=== PATIENT | female | born 1995 | race Caucasian/White ===

== ENCOUNTER 2024-10-03 00:57 | Emergency (ER) | payer MEDICAID, SELFPAY ==
[2024-10-03 00:59] VITALS: BMI 39.1
[2024-10-03 01:33] VITALS: BP 129/82; PULSE 68; RESP 18; TEMP 36.7; O2SAT 98
[2024-10-03] MEDS: MG HYD/AL HYD/SIME (Maalox Reg) SUSP 30 ML UDC PO (02:10)
[2024-10-03] MEDS: LIDOCAINE VISCOUS 2% 15 ML UDC PO (02:10)
[2024-10-03] MEDS: ONDANSETRON ODT 4 MG TABRAP 8 MG PO (02:10)
[2024-10-03] MEDS: FAMOTIDINE 20 MG TABLET 40 MG PO (02:10)
[2024-10-03 02:26] VITALS: RESP 12
--- NOTE | 2024-10-03 04:10 | EDNOTE_ITS ---
ED Abdominal Pain RME/HPI General Chief Complaint: Abdominal Pain Stated complaint: ABD PAIN Time seen by provider: 10/03/24 01:58 Arrival date/time: 10/03/24 00:57 29F with history of cholecystectomy, gastric bypass surgery, and GERD presents to ED with intermittent N/V and epigastric pain. Patient states today there was a bit of blood in her mucus. Patient denies coughing up blood. Patient just wants some meds as she doesn't have much pain now as the symptoms are undulating. Limitations: no limitations Related Data Previous Rx's ?Medication ?Instructions ?Recorded ondansetron 4 mg disintegrating 4 mg PO Q8H PRN nausea and 10/03/24 tablet vomiting #14 tabs Allergies Allergy/AdvReac Type Severity Reaction Status Date / Time No Known Allergies Allergy Verified 10/03/24 00:58 Review of Systems Review of Systems Systems Reviewed: All systems reviewed, normal except as documented Constitutional Constitutional: Reports system reviewed and no additional complaints, except as documented, Denies fever(s) and Denies headache(s) ENT Ears, Nose, Mouth, and Throat: Denies disequilibrium and Denies headache(s) Cardiovascular Cardiovascular: Reports system reviewed and no additional complaints, except as documented, Denies chest pain and Denies dyspnea Respiratory Respiratory: Reports system reviewed and no additional complaints, except as documented, Denies cough and Denies dyspnea Gastrointestinal Gastrointestinal: Reports system reviewed and no additional complaints, except as documented, Reports as per HPI, Reports abdominal pain, Reports nausea and Reports vomiting Neurologic Neurologic: Reports system reviewed and no additional complaints, except as documented, Denies confusion, Denies disequilibrium and Denies headache(s) Psychiatric Psychiatric: Denies confusion Past Medical History Social History SMOKING STATUS: Never smoker ED Exam General Limitations: Present no limitations General appearance: Present alert and in no apparent distress Head Head exam: Present atraumatic Eye Eye exam: Present normal appearance, PERRL and EOMI ENT ENT exam: Present normal exam, normal oropharynx and mucous membranes moist Neck Neck exam: Present normal inspection, full ROM and trachea midline Chest Chest inspection: Present normal inspection and symmetric chest wall rise Respiratory Respiratory exam: Present normal lung sounds bilaterally Cardiovascular Cardiovascular exam: Present regular rate, normal rhythm and normal heart sounds Abdominal Exam Abdominal exam: Present soft and normal bowel sounds Extremities Exam Extremities exam: Present normal inspection and full ROM Back Exam Back exam: Present normal inspection and full ROM Neurological Exam Neurological exam: Present alert, oriented X3 and CN II-XII intact Psychiatric Psychiatric exam: Present normal affect and normal mood Skin Skin exam: Present warm, dry, intact and normal color Course Quality Measures none Orders Category Date Time Status Famotidine [Pepcid] Med 10/03/24 01:58 Discontinued 40 mg PO X1 ONE Lidocaine 2% Viscous [Xylocaine 2% Viscous] Med 10/03/24 01:58 Discontinued 15 ml PO X1 ONE Ondansetron Odt [Zofran Odt] Med 10/03/24 01:58 Discontinued 8 mg PO X1 ONE mg Hyd/Al Hyd/Michael Susp [Maalox Susp] Med 10/03/24 01:58 Discontinued 30 ml PO X1 ONE Vital Signs Vital signs: Vital Signs Temperature 98.1 F 10/03/24 01:33 Pulse Rate 68 10/03/24 01:33 Respiratory Rate 18 10/03/24 01:33 Blood Pressure 129/82 10/03/24 01:33 Pulse Oximetry (%) 98 10/03/24 01:33 Oxygen Delivery Method Room Air 10/03/24 01:33 O2 at 98% on RA and WNLs Abdominal Pain MDM MDM Narrative MDM Narrative:: 29F with history of cholecystectomy, gastric bypass surgery, and GERD presents to ED with intermittent N/V and epigastric pain. Patient states today there was a bit of blood in her mucus. Patient denies coughing up blood. Patient just wants some meds as she doesn't have much pain now as the symptoms are undulating. Physical exam reveals well-appearing female. Normal WOB. Patient is afebrile, calm, and alert. 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 Patient declines observation period. Patient data External records reviewed:: None Clinical information provided by:: patient Social determinants that could affect healthcare access:: none Patient has the following chronic illnesses:: cholecystectomy, gastric bypass surgery, and GERD How is presenting disease/condition affected by chronic disease/condition?: exacerbated by Evaluation data The following diagnostics were reviewed and interpreted by me:: other (specify) (none) Lab and/or radiology exams considered but not ordered:: not ordered Interpretation Summary: n/a Medications / Prescriptions Medications or Prescriptions considered but not ordered:: ordered Medication administrations:: Medication Administration History Discontinued Medications Al Hydrox/Mg Hydrox/Simethicone (Mg Hyd/Al Hyd/Michael (Maalox Reg) Susp 30 Ml Udc) 30 ml PO X1 ONE Stop: 10/03/24 01:59 Last Admin: 10/03/24 02:10 Dose: 30 ml Documented By: CVL Famotidine (Famotidine 20 Mg Tablet) 40 mg PO X1 ONE Stop: 10/03/24 01:59 Last Admin: 10/03/24 02:10 Dose: 40 mg Documented By: CVL Lidocaine HCl (Lidocaine Viscous 2% 15 Ml Udc) 15 ml PO X1 ONE Stop: 10/03/24 01:59 Last Admin: 10/03/24 02:10 Dose: 15 ml Documented By: CVL Ondansetron HCl (Ondansetron Odt 4 Mg Tabrap) 8 mg PO X1 ONE; Protocol Stop: 10/03/24 01:59 Last Admin: 10/03/24 02:10 Dose: 8 mg Documented By: CVL above Consultations Consultation(s) initiated? (list below): No Diagnosis Differential diagnosis abdominal pain: abdominal pain, acute appendicitis, calculus of kidney, constipation, diverticulitis, endometriosis, gastroenteritis, pancreatitis, small bowel obstruction and other (GERD) Most likely diagnosis given after review of the tests above:: GERD Admission Indicated Admission indicated?: not indicated Admission Request Was there a request for admission?: No Disposition Plan Disposition Plan: Discharge Discharge Attestation Discharge Attestation: The patient and all family members were given an opportunity to ask questions and understood the discharge instructions. Discharge instructions specifically effects, indications for sooner follow up or return to the emergency department, and the expected course of current diagnosis. Patient condition: Stable Discharge Plan Plan Patient Disposition: HOME (Self Care) Discharge Disposition comment: Stable Prescriptions/Referrals Prescriptions/Med Rec: New ondansetron 4 mg tablet,disintegrating 4 mg PO Q8H PRN (Reason: nausea and vomiting) Qty: 14 0RF Problem List Clinical Impression: GERD (gastroesophageal reflux disease) Patient/Caregiver Discharge Instructions Education Materials: ED GERD (Adult) Additional Instructions: Please follow-up with PCP within 24-48 hours and return immediately if symptoms worsen. Can ask PCP about H.pylori testing if you haven't been tested yet. Print Language: [place] Helen[place] Stand Alone Forms: Patient Portal Info Letter MARIELA/YESICA Supervising Physician MARIELA/YESICA Supervising Physician: Dr. Varghese
== END 2024-10-03 02:26 | disposition home or self-care (01) ==
LOC: SERX 06:26
PROVIDERS: Emergency Provider Emergency Medicine; PCP Internal Medicine
DX: K21.9 Gastro-esophageal reflux disease without esophagitis (principal)
CPT/HCPCS: 99283; J3490; Q0162; A9270

== ENCOUNTER 2024-10-25 18:42 | Emergency (ER) | payer MEDICAID, SELFPAY ==
[2024-10-25 19:25] VITALS: BP 127/85; PULSE 73; RESP 18; TEMP 36.8; O2SAT 98
--- NOTE | 2024-10-25 19:37 | XR_ITS ---
Examination: PA chest single view Technique: Upright PA chest single view Date and time: October 25, 2024 1941 hrs. Indications: Coughing beginning 2 days ago. Findings: Suspicious for early left basilar pneumonia Normal heart size Right lung clear Impression: Suspicious for early left basilar pneumonia
[2024-10-25 20:08] LABS: Strep A Rapid Negative (Negative)
[2024-10-25 20:39] LABS: HCG Qualitative,Urine Negative
--- NOTE | 2024-10-25 21:17 | PD.EDURI ---
Upper Respiratory Inf. RME/HPI General Chief Complaint: Flu Like Symptoms Stated Complaint: COUGH, RUNNY NOSE, SORE THROAT Time Seen by Provider: 10/25/24 19:13 Arrival date/time: 10/25/24 18:42 This is a case of 29-year-old female with no medical history came into the emergency room due to productive cough nasal congestion subjective fever and sore throat for 1 day patient is exposed to with COVID patient persistence of the symptoms this patient decided to sought consult here in the emergency room denies any chest pain shortness of breath Limitations: no limitations Related Data Previous Rx's ?Medication ?Instructions ?Recorded ondansetron 4 mg disintegrating 4 mg PO Q8H PRN nausea and 10/03/24 tablet vomiting #14 tabs albuterol sulfate 90 mcg/actuation 2 puff inhalation Q6H PRN 10/25/24 aerosol inhaler (Ventolin HFA) shortness of breath or wheezing #8.5 grams amoxicillin 875 mg-potassium 1 tab PO BID #20 tabs 10/25/24 clavulanate 125 mg tablet lidocaine HCl 2 % mucosal solution 10 ml PO Q4HR PRN sore throat #100 10/25/24 (Lidocaine Viscous) mL promethazine-DM 6.25 mg-15 mg/5 mL 5 ml PO Q6H PRN cough #118 mL 10/25/24 oral syrup Allergies Allergy/AdvReac Type Severity Reaction Status Date / Time No Known Allergies Allergy Verified 10/25/24 18:44 Review of Systems Review of Systems Systems Reviewed: All systems reviewed, normal except as documented Constitutional Constitutional: Reports system reviewed and no additional complaints, except as documented and Reports as per HPI Cardiovascular Cardiovascular: Reports system reviewed and no additional complaints, except as documented, Reports as per HPI, Denies chest pain and Denies dyspnea Respiratory Respiratory: Reports system reviewed and no additional complaints, except as documented, Reports as per HPI, Reports cough and Denies dyspnea Gastrointestinal Gastrointestinal: Reports system reviewed and no additional complaints, except as documented and Reports as per HPI Genitourinary Genitourinary: Reports system reviewed and no additional complaints, except as documented and Reports as per HPI Musculoskeletal Musculoskeletal: Reports system reviewed and no additional complaints, except as documented and Reports as per HPI Neurologic Neurologic: Reports system reviewed and no additional complaints, except as documented and Reports as per HPI Past Medical History Social History SMOKING STATUS: Never smoker ED Exam General Limitations: Present no limitations General appearance: Present alert, in no apparent distress and other (Patient is awake alert oriented not in distress nontoxic looking well-hydrated no well-nourished) Head Head exam: Present atraumatic, normocephalic and normal inspection Eye Eye exam: Present normal appearance, PERRL and EOMI ENT ENT exam: Present normal exam, normal oropharynx, mucous membranes moist and other (Noted pharynx versus red tonsil is not swollen not red no exudate no peritonsillar abscess ear and nose were normal) Neck Neck exam: Present normal inspection, full ROM, trachea midline and other (24 meningeal sign); Absent tenderness, meningismus or lymphadenopathy Chest Chest inspection: Present normal inspection and symmetric chest wall rise; Absent tenderness Respiratory Respiratory exam: Present normal lung sounds bilaterally and other (Rhonchi right lower lung field no crackles no rales no retraction no wheezing no stridor); Absent respiratory distress, wheezes, stridor, accessory muscle use or prolonged expiratory phase Cardiovascular Cardiovascular exam: Present regular rate, normal rhythm and normal heart sounds; Absent bradycardia, tachycardia, irregular rhythm, systolic murmur or diastolic murmur Abdominal Exam Abdominal exam: Present soft and normal bowel sounds Extremities Exam Extremities exam: Present normal inspection and full ROM Back Exam Back exam: Present normal inspection and full ROM Neurological Exam Neurological exam: Present alert, oriented X3, CN II-XII intact, normal gait and reflexes normal; Absent motor sensory deficit Psychiatric Psychiatric exam: Present normal affect and normal mood Skin Skin exam: Present warm, dry, intact and normal color Course Quality Measures none Orders Category Date Time Status Bedside COVID-19 Antigen Test NOW Care 10/25/24 19:37 Active Bedside Influenza A&B Antigen Test NOW Care 10/25/24 19:37 Completed XR chest 1V portable Stat Exams 10/25/24 19:37 Completed HCG Qualitative,Urine Stat Lab 10/25/24 20:13 Completed Strep A Rapid Stat Lab 10/25/24 19:47 Completed cefTRIAXone [Rocephin] 1,000 mg Med 10/25/24 21:14 Ordered Lidocaine 1% 20 ml [Xylocaine 1% 20 ML] 2.1 ml IM X1 Vital Signs Vital signs: Vital Signs Temperature 98.3 F 10/25/24 19:25 Pulse Rate 73 10/25/24 19:25 Respiratory Rate 18 10/25/24 19:25 Blood Pressure 127/85 H 10/25/24 19:25 Pulse Oximetry (%) 98 10/25/24 19:25 Oxygen Delivery Method Room Air 10/25/24 19:25 Oxygen saturation is 98% in room air Upper Respiratory Infection MDM Narrative MDM Narrative:: This is a case of 29-year-old female with no medical history came into the emergency room due to productive cough nasal congestion subjective fever and sore throat for 1 day patient is exposed to with COVID patient persistence of the symptoms this patient decided to sought consult here in the emergency room denies any chest pain shortness of breath patient is awake alert oriented not in distress nontoxic looking well-hydrated well-nourished lungs sound noted to have rhonchi on right lower lung field no wheezing no retraction no stridor not in distress heart normal rate regular rhythm no murmur HEENT exam noted to be redness on the pharynx but tonsils were normal the rest of the physical examination neurological exam is normal and unremarkable vital signs stable patient COVID and flu is negative strep is negative but the x-ray showed pneumonia patient was given ceftriaxone IM here in the emergency room for pneumonia and discharged with Augmentin patient was also given Ventolin inhaler as needed promethazine for cough and lidocaine viscous for sore throat patient will follow-up with PCP and worsening symptoms return precaution to the ER was advised Patient was discharged with comfortable condition walking with stable gait. Patient verbalized no further complains explained diagnosis and answered patient question. Patient is comfortable with the proposed management plan including the need to follow up with his/her primary care physician and any specialist if applicable Discussed patient for any urgent condition or worsening sx, He/She needed to go to emergency room immediately or call 911. Patient acknowledge the responsibility to follow up as instructed and to monitor her/his symptoms. For any persistence of the symptoms for more than 3-5 days return precaution advised. Discussed the result of the test and was given printed discharge instruction Patient data External records reviewed:: [facility] previous records Clinical information provided by:: patient Social determinants that could affect healthcare access:: none Patient has the following chronic illnesses:: None How is presenting disease/condition affected by chronic disease/condition?: no chronic disease Evaluation data The following diagnostics were reviewed and interpreted by me:: lab results and radiology exam(s) Lab and/or radiology exams considered but not ordered:: Reviewed Interpretation Summary: Reviewed Medications / Prescriptions Medications or Prescriptions considered but not ordered:: Given Medication administrations:: Medication Administration History Ceftriaxone Sodium 1,000 mg/ (Lidocaine HCl 2.1 ml) 0 mg IM X1 ONE Stop: 10/25/24 21:15 Given Consultations Consultation(s) initiated? (list below): No Diagnosis Upper Respiratory Differential Diagnosis: upper respiratory infection, otitis media, sinusitis, viral infection, bronchitis, influenza, pharyngitis and other (Pneumonia) Most likely diagnosis given after review of the tests above:: Pneumonia Admission Indicated Admission indicated?: not indicated Explain why admission is indicated or not indicated:: Not indicated Admission Request Was there a request for admission?: No Admission Attestation Admission request attestation: Not indicated Disposition Plan Disposition Plan: Discharge Discharge Attestation Discharge Attestation: The patient and all family members were given an opportunity to ask questions and understood the discharge instructions. Discharge instructions specifically effects, indications for sooner follow up or return to the emergency department, and the expected course of current diagnosis. Patient condition: Stable Discharge Plan Plan Patient Disposition: HOME (Self Care) Patient condition on transfer: Stable Prescriptions/Referrals Prescriptions/Med Rec: New amoxicillin-pot clavulanate 875-125 mg tablet 1 tab PO BID Qty: 20 0RF albuterol sulfate [Ventolin HFA] 90 mcg/actuation HFA aerosol inhaler 2 puff inhalation Q6H PRN (Reason: shortness of breath or wheezing) Qty: 8.5 0RF promethazine-DM 6.25-15 mg/5 mL syrup 5 ml PO Q6H PRN (Reason: cough) Qty: 118 0RF lidocaine HCl [Lidocaine Viscous] 2 % solution 10 ml PO Q4HR PRN (Reason: sore throat) Qty: 100 0RF No Action ondansetron 4 mg tablet,disintegrating 4 mg PO Q8H PRN (Reason: nausea and vomiting) Qty: 14 0RF Referrals: Fatemeh Rogel MD [Primary Care Provider] - In 1 week Problem List Clinical Impression: Pneumonia, Pharyngitis Patient/Caregiver Discharge Instructions Education Materials: When You Have a Sore Throat, ED Pneumonia (Adult) Additional Instructions: Follow-up with your primary care physician in 2 days for reevaluation worsening symptoms or any emergent concerns such as chest pain shortness of breath wheezing in distress call 911 or go to the nearest emergency room take your medication as directed finish the course of antibiotic keep hydrated Print Language: Hungarian Stand Alone Forms: Martha Award Info., Patient Portal Info Letter PA/BUSINESS AND MARKETING TEACHER Supervising Physician PA/BUSINESS AND MARKETING TEACHER Supervising Physician: Dr. Duarte
[2024-10-25] MEDS: cefTRIAXone 1,000 MG, LIDOCAINE 1% 20 ML 2.1 ML IM (21:20)
== END 2024-10-25 21:23 | disposition home or self-care (01) ==
PROVIDERS: Nurse Practitioner Family; Emergency Provider Emergency Medicine; PCP Internal Medicine
DX: J18.9 Pneumonia, unspecified organism (principal); J02.9 Acute pharyngitis, unspecified
CPT/HCPCS: 71045; 81025; 87400; 87651; 87811; 96372; 99283; J0696; J3490

== ENCOUNTER 2025-01-16 05:47 | Emergency (ER) | payer MEDICAID, SELFPAY ==
[2025-01-16 05:48] VITALS: BMI 39.6
[2025-01-16 06:06] VITALS: BP 120/87; PULSE 80; RESP 18; TEMP 36.6; O2SAT 97
--- NOTE | 2025-01-16 06:18 | EDNOTE_ITS ---
ED General RME/HPI General Chief complaint: General Adult/Misc Complain Stated complaint: PRESSURE TO RIGHT SIDE OF FACE, Time Seen by Provider: 01/16/25 06:14 Arrival date/time: 01/16/25 05:47 29-year-old female who believes she is approximately 4 weeks presents with concerns for right-sided facial pain right sided nasal discharge and right- sided facial pressure Limitations: no limitations Related Data Previous Rx's ?Medication ?Instructions ?Recorded ondansetron 4 mg disintegrating 4 mg PO Q8H PRN nausea and 10/03/24 tablet vomiting #14 tabs albuterol sulfate 90 mcg/actuation 2 puff inhalation Q 6H PRN 10/25/24 aerosol inhaler (Ventolin HFA) shortness of breath or wheezing #8.5 grams amoxicillin 875 mg-potassium 1 tab PO BID #20 tabs clavulanate 125 mg tablet lidocaine HCl 2 % mucosal solution 10 ml PO Q4HR PRN s ore throat #100 10/25/24 (Lidocaine Viscous) mL promethazine-DM 6.25 mg-15 mg/5 mL 5 ml PO Q6H PRN cou gh #118 mL 10/25/24 oral syrup acetaminophen 500 mg capsule 1,000 mg (2 x 500 mg) PO Q8HR PRN 01/16/25 pain #30 caps amoxicillin 875 mg-potassium 1 tab PO BID 7 days #14 t abs 01/16/25 clavulanate 125 mg tablet Allergies Allergy/AdvReac Type Severity Reaction Status Date / Time No Known Allergies Allergy Verified 01/16/25 05:48 Review of Systems Review of Systems Systems Reviewed: All systems reviewed, normal except as documented Constitutional Constitutional: Reports system reviewed and no additional complaints, except as documented, Denies fever(s) and Denies headache(s) Eyes Eyes: Reports system reviewed and no additional complaints, except as documented and Denies blurry vision ENT Ears, Nose, Mouth, and Throat: Reports system reviewed and no additional complaints, except as documented, Reports facial pain, Denies headache(s), Reports nasal congestion, Reports nasal discharge, Reports sinus pain and Reports sinus pressure Cardiovascular Cardiovascular: Reports system reviewed and no additional complaints, except as documented, Denies chest pain and Denies dyspnea Respiratory Respiratory: Reports system reviewed and no additional complaints, except as documented, Denies chest congestion, Denies cough and Denies dyspnea Gastrointestinal Gastrointestinal: Reports system reviewed and no additional complaints, except as documented and Denies abdominal pain Integumentary/Breasts Skin/Breast: Reports system reviewed and no additional complaints, except as documented and Denies rash Neurologic Neurologic: Reports system reviewed and no additional complaints, except as documented, Reports as per HPI and Denies headache(s) Past Medical History Social History SMOKING STATUS: Former smoker ED Exam General Limitations: Present no limitations General appearance: Present alert and in no apparent distress Head Head exam: Present atraumatic, normocephalic and normal inspection Eye Eye exam: Present normal appearance, PERRL and EOMI; Absent conjunctival injection ENT ENT exam: Present normal exam, normal oropharynx and mucous membranes moist Neck Neck exam: Present normal inspection, full ROM and trachea midline Chest Chest inspection: Present normal inspection and symmetric chest wall rise Respiratory Respiratory exam: Present normal lung sounds bilaterally; Absent respiratory distress Cardiovascular Cardiovascular exam: Present regular rate, normal rhythm and normal heart sounds Abdominal Exam Abdominal exam: Present soft and normal bowel sounds Extremities Exam Extremities exam: Present normal inspection and full ROM Back Exam Back exam: Present normal inspection and full ROM Neurological Exam Neurological exam: Present alert, oriented X3 and CN II-XII intact Psychiatric Psychiatric exam: Present normal affect and normal mood Skin Skin exam: Present warm, dry, intact and normal color Course Quality Measures none Vital Signs Vital signs: Vital Signs Temperature 98 F 01/16/25 06:06 Pulse Rate 80 01/16/25 06:06 Respiratory Rate 18 01/16/25 06:06 Blood Pressure 120/87 H 01/16/25 06:06 Pulse Oximetry (%) 97 01/16/25 06:06 Oxygen Delivery Method Room Air 01/16/25 06:06 O2 saturation 97% room air within normal limits Discharge Plan Plan Patient Disposition: HOME (Self Care) Discharge Disposition comment: stable Prescriptions/Referrals Prescriptions/Med Rec: New acetaminophen 500 mg capsule 1,000 mg PO Q8HR PRN (Reason: pain) Qty: 30 0RF amoxicillin-pot clavulanate 875-125 mg tablet 1 tab PO BID 7 Days Qty: 14 0RF No Action ondansetron 4 mg tablet,disintegrating 4 mg PO Q8H PRN (Reason: nausea and vomiting) Qty: 14 0RF amoxicillin-pot clavulanate 875-125 mg tablet 1 tab PO BID Qty: 20 0RF albuterol sulfate [Ventolin HFA] 90 mcg/actuation HFA aerosol inhaler 2 puff inhalation Q6H PRN (Reason: shortness of breath or wheezing) Qty: 8.5 0RF promethazine-DM 6.25-15 mg/5 mL syrup 5 ml PO Q6H PRN (Reason: cough) Qty: 118 0RF lidocaine HCl [Lidocaine Viscous] 2 % solution 10 ml PO Q4HR PRN (Reason: sore throat) Qty: 100 0RF Problem List Clinical Impression: Sinusitis Patient/Caregiver Discharge Instructions Education Materials: When to Use Antibiotics Additional Instructions: Please follow up with your primary care doctor in the next 24-48hrs for any worsening symptoms return here immediately Print Language: Setswana Stand Alone Forms: Mratha Award Info., Patient Portal Info Letter PA/CYBER INTELLIGENCE ANALYST Supervising Physician PA/CYBER INTELLIGENCE ANALYST Supervising Physician: dr parrish MDM Narrative MDM hospital course (for use when minimal MDM required): 29-year-old female who believes she is approximately 4 weeks presents with concerns for right-sided facial pain right sided nasal discharge and right- sided facial pressure On exam patient well-appearing does not appear ill or toxic no acute distress Based on symptomatology symptoms are consistent with sinusitis Patient be treated symptomatically should symptoms persist or worsen instructed return for evaluation Clinical Information Provided by: patient Medical Records reviewed [facility] Meds/Rx considered, not ordered None Labs/Rad/Tests considered, not ordered None Chronic Illness/Social Conditions which may negatively complicate care or outcome(s)-explain: None or not applicable EKG EKG not done Labs Labs: none Imaging Imaging interpretation: none Medication Administration(s) none Given Diagnosis Differential Diagnosis ED Complaint MDM: URI, influenza, COVID-19, pneumonia sinusitis
== END 2025-01-16 06:29 | disposition home or self-care (01) ==
LOC: SERX 06:48
PROVIDERS: Emergency Provider Emergency Medicine
DX: O26.91 Pregnancy related conditions, unspecified, first trimester (principal); J32.9 Chronic sinusitis, unspecified
CPT/HCPCS: 99281

== ENCOUNTER 2025-01-24 14:11 | Emergency (ER) | payer MEDICAID, SELFPAY ==
[2025-01-24 14:12] VITALS: BMI 39.4
[2025-01-24 14:37] VITALS: BP 120/75; PULSE 76; RESP 18; TEMP 36.5; O2SAT 99
--- NOTE | 2025-01-24 15:36 | XR_ITS ---
Examination: Complete OB ultrasound, less than 14 weeks, transabdominal Date and time of exam: January 24, 2025, 1644 hours INDICATIONS: Pelvic cramping beginning 2 days ago Technique: Obstetrical ultrasound images less than 14 weeks performed via transabdominal imaging Findings: Uterus 8.0 cm intrauterine gestational sac 0.8 cm corresponds to 5 weeks 4 days gestational age, no pole, no cardiac activity Right ovary 2.8 cm arterial flow Left ovary 2.9 cm arterial flow IMPRESSION: Empty intrauterine gestational sac corresponding to 5 weeks 4 days gestational age Recommend transvaginal pelvic sonography follow-up to confirm viability
--- NOTE | 2025-01-24 15:37 | PD.EDRME ---
Rapid Medical Screening Exam E Arrival date/time: 01/24/25 14:11 This is a 29-year-old female that comes into the emergency room with complaints of abdominal cramping. Patient states that she just found out she is . Patient is a 3 para 1 and had 1 miscarriage. Patient states she just had gastric bypass surgery November 24. I have greeted and performed a focused initial assessment of this patient. Initial appropriate labs ordered at this time. A comprehensive ED assessment and evaluation of the patient and analysis of all test and completion of medical decision making process will be conducted by additional ED provider. Chief Complaint: Vaginal Bleeding Time Seen by Provider: 01/24/25 15:16 Vital signs: Vital Signs Temperature 97.7 F 01/24/25 14:37 Pulse Rate 76 01/24/25 14:37 Respiratory Rate 18 01/24/25 14:37 Blood Pressure 120/75 01/24/25 14:37 Pulse Oximetry (%) 99 01/24/25 14:37 Oxygen Delivery Method Room Air 01/24/25 14:37 Exam: Alert and oriented, breathing even and unlabored, skin warm and dry Clinical Impression: Abdominal pain
[2025-01-24 15:52] LABS: Basophils # (Auto) 0.0 Thou/mm3 (0.0-0.2); Basophils % (Auto) 0 % (0-2.5); Eosinophils # (Auto) 0.1 Thou/mm3 (0.0-0.5); Eosinophils % (Auto) 2 % (0-10); Hematocrit 36.7 % (36.0-46.0); Hemoglobin 11.8 g/dL (12.0-16.0); Immature Granulocytes Auto 0.01 Thou/mm3 (0.00-0.00); Lymphocytes # (Auto) 2.6 Thou/mm3 (1.0-4.8); Lymphocytes % (Auto) 36 % (10-50); Mean Corpuscular HGB Conc 32.2 g/dl (31.0-37.0); Mean Corpuscular Hemoglobin 27.3 pg (25.0-35.0); Mean Corpuscular Volume 85 fL (80-100); Monocytes # (Auto) 0.4 Thou/mm3 (0.0-0.8); Monocytes % (Auto) 5 % (0-12); Neutrophils # (Auto) 3.9 Thou/mm3 (1.8-7.7); Neutrophils % (Auto) 56 % (37-80); Nucleated Red Blood Cell # 0.00 Thou/mm3 (0.00-0.00); Nucleated Red Blood Cell % 0 /100 WBC (0); Platelet Count 271 Thou/mm3 (140-440); RDW Standard Deviation 45.0 fL (36.4-46.3); Red Blood Count 4.32 Miln/mm3 (4.00-5.20); White Blood Count 7.0 Thou/mm3 (3.6-11.0)
[2025-01-24 16:18] LABS: Collection Type, Urine Voided
[2025-01-24 16:24] VITALS: BP 117/68; PULSE 64; RESP 18; TEMP 36.7; O2SAT 96
[2025-01-24 16:24] LABS: Alanine Aminotransferase 16 U/L (10-49); Albumin, Serum 4.3 gm/dL (3.5-5.0); Albumin/Globulin Ratio 1.6 (1.2-2.2); Alkaline Phosphatase 61 U/L (46-116); Anion Gap 7 (7-16); Aspartate Amino Transferase 16 U/L (0-34); BUN/Creatinine Ratio 20 Ratio (12-20); Bilirubin,Total 0.6 mg/dL (0.3-1.2); Blood Urea Nitrogen 12 mg/dL (9-23); Calcium 8.7 mg/dL (8.3-10.6); Calcium (Corrected) 8.7 mg/dL (8.5-10.1); Carbon Dioxide 26.7 mMol/L (20.0-31.0); Chloride 110 mMol/L (98-107); Creatinine (Component) 0.6 mg/dL (0.6-1.3); Estimated Creatinine Clearance 179.0 mL/min (>60); Globulin 2.7 gm/dL (2.3-3.5); Glucose 92 mg/dL (74-106); Osmolality,Calculated 286 (275-295); Potassium 4.3 mMol/L (3.4-5.1); Sodium 144 mMol/L (136-145); Total Protein 7.0 gm/dL (5.7-8.2); eGFR > 60 See Note
[2025-01-24 16:31] LABS: Bacteria,Urine Rare; Bilirubin,Urine Negative (Negative); Blood,Urine Negative (Negative); Color,Urine Yellow (Lt Yel-Yel); Culture Indicated,Urine Not Indicated; Glucose, Urine Negative (Negative); Ketones,Urine Trace (Negative); Leukocyte Esterase,Urine Positive (Negative); Nitrite,Urine Negative (Negative); PH,Urine 6.0 (5.0-7.0); Protein,Urine Trace (Neg - Trace); RBC,Urine 4 /hpf (0-3); Specific Gravity,Urine 1.031 (1.001-1.035); Squamous Epithelial Cell,Urine 19 /hpf (0-5); Urobilinogen,Urine Negative mg/dL (0.0-1.0); WBC,Urine 4 /hpf (0-5)
[2025-01-24 16:32] LABS: Clarity,Urine Hazy (Clear/Hazy)
[2025-01-24 17:20] LABS: Beta HCG,Quantitative 10417 mIU/mL (<5.0)
--- NOTE | 2025-01-24 17:37 | PD.EDVAGBL ---
ED OB Contraction Preg RMI/HPI General Chief complaint: Vaginal Bleeding Stated complaint: 5 WK PREG, CRAMPS, DENIES BLEED, SOME DISCHAR Time Seen by Provider: 01/24/25 15:16 Arrival date/time: 01/24/25 14:11 Limitations: no limitations RME / HPI RME / HPI Narrative: 01/24/25 14:11 This is a 29-year-old female that comes into the emergency room with complaints of abdominal cramping. Patient states that she just found out she is . Patient is a 3 para 1 and had 1 miscarriage. Patient states she just had gastric bypass surgery November 24. I have greeted and performed a focused initial assessment of this patient. Initial appropriate labs ordered at this time. A comprehensive ED assessment and evaluation of the patient and analysis of all test and completion of medical decision making process will be conducted by additional ED provider. DR. PALMA MAIN ED EVALUATION: 29-year-old female, 5th and approximately 5 weeks , presents for vaginal bleeding. She reports no abdominal pain, no dizziness, and no other symptoms. She has no known medical history. No other complaints provided. Related Data Previous Rx's ?Medication ?Instructions ?Recorded ondansetron 4 mg disintegrating 4 mg PO Q8H PRN nausea and 10/03/24 tablet vomiting #14 tabs albuterol sulfate 90 mcg/actuation 2 puff inhalation Q6H PRN 10/25/24 aerosol inhaler (Ventolin HFA) shortness of breath or wheezing #8.5 grams amoxicillin 875 mg-potassium 1 tab PO BID #20 tabs 10/25/24 clavulanate 125 mg tablet lidocaine HCl 2 % mucosal solution 10 ml PO Q4HR PRN sore throat #100 10/25/24 (Lidocaine Viscous) mL promethazine-DM 6.25 mg-15 mg/5 mL 5 ml PO Q6H PRN cough #118 mL 10/25/24 oral syrup acetaminophen 500 mg capsule 1,000 mg (2 x 500 mg) PO Q8HR PRN 01/16/25 pain #30 caps Allergies Allergy/AdvReac Type Severity Reaction Status Date / Time No Known Allergies Allergy Verified 01/24/25 14:13 Review of Systems Review of Systems Systems Reviewed: All systems reviewed, normal except as documented Past Medical History Social History SMOKING STATUS: Never smoker ED Exam General Limitations: Present no limitations General appearance: Present alert and in no apparent distress Head Head exam: Present atraumatic, normocephalic and normal inspection Eye Eye exam: Present normal appearance, PERRL and EOMI ENT ENT exam: Present normal exam, normal oropharynx and mucous membranes moist Neck Neck exam: Present normal inspection, full ROM and trachea midline Chest Chest inspection: Present normal inspection and symmetric chest wall rise Respiratory Respiratory exam: Present normal lung sounds bilaterally Cardiovascular Cardiovascular exam: Present regular rate, normal rhythm and normal heart sounds Abdominal Exam Abdominal exam: Present soft and normal bowel sounds Extremities Exam Extremities exam: Present normal inspection and full ROM Back Exam Back exam: Present normal inspection and full ROM Neurological Exam Neurological exam: Present alert, oriented X3 and CN II-XII intact Psychiatric Psychiatric exam: Present normal affect and normal mood Skin Skin exam: Present warm, dry, intact and normal color Course Quality Measures none Orders Category Date Time Status US OB <= 14 weeks fetus Stat Exams 01/24/25 15:36 Taken Beta HCG,Quantitative Stat Lab 01/24/25 15:45 Completed CBC Stat Lab 01/24/25 15:45 Completed Comprehensive Metabolic Panel Stat Lab 01/24/25 15:45 Completed Urinalysis, C/S if Indicated Stat Lab 01/24/25 15:52 Completed Vital Signs Vital signs: Vital Signs Temperature 97.7 F 01/24/25 14:37 Pulse Rate 76 01/24/25 14:37 Respiratory Rate 18 01/24/25 14:37 Blood Pressure 120/75 01/24/25 14:37 Pulse Oximetry (%) 99 01/24/25 14:37 Oxygen Delivery Method Room Air 01/24/25 14:37 Vaginal Bleeding MDM Narrative MDM Narrative: Elvi Mistry am scribing for and in the presence of Dr. Palma. 29-year-old female at 5 weeks gestation presenting with vaginal bleeding. Exam normal. Assessment to rule out ectopic , spontaneous , and appendicitis. Impression is early with vaginal bleeding. Plan for ultrasound and labs. Patient stable for continued evaluation. 1800: Patient was signed out to Dr. Garg. Past medical, surgical, social and family history reviewed. Vitals and home medications reviewed. Results and treatment plan discussed. They will assume the care of the patient at this time and will follow the patient, pending ultrasound report and final disposition. Patient data External records reviewed:: [facility] previous records Clinical information provided by:: patient Social determinants that could affect healthcare access:: none Patient has the following chronic illnesses:: She has no known medical history. How is presenting disease/condition affected by chronic disease/condition?: no chronic disease Evaluation data The following diagnostics were reviewed and interpreted by me:: lab results and radiology exam(s) Lab and/or radiology exams considered but not ordered:: none Interpretation Summary: See MDM narrative above. Medications / Prescriptions Medications or Prescriptions considered but not ordered:: none Medication administrations:: see above if any Consultations Consultation(s) initiated? (list below): No Diagnosis Vaginal Bleeding Differential Diagnosis: other (ectopic , spontaneous , and appendicitis) Most likely diagnosis given after review of the tests above:: No official diagnoses at this time, still pending diagnostic tests. Patient signout to the actuarial manager provider. Admission Indicated Admission indicated?: not indicated Explain why admission is indicated or not indicated:: No final disposition plan at this time, still pending diagnostic tests. Patient signout to the actuarial manager provider. Admission Request Was there a request for admission?: No Disposition Plan Disposition Plan: other (specify) (Patient signed out to Dr. Garg.) Discharge Plan Plan Patient Disposition: HOME (Self Care) Patient condition on transfer: Stable Prescriptions/Referrals Prescriptions/Med Rec: No Action ondansetron 4 mg tablet,disintegrating 4 mg PO Q8H PRN (Reason: nausea and vomiting) Qty: 14 0RF amoxicillin-pot clavulanate 875-125 mg tablet 1 tab PO BID Qty: 20 0RF albuterol sulfate [Ventolin HFA] 90 mcg/actuation HFA aerosol inhaler 2 puff inhalation Q6H PRN (Reason: shortness of breath or wheezing) Qty: 8.5 0RF promethazine-DM 6.25-15 mg/5 mL syrup 5 ml PO Q6H PRN (Reason: cough) Qty: 118 0RF lidocaine HCl [Lidocaine Viscous] 2 % solution 10 ml PO Q4HR PRN (Reason: sore throat) Qty: 100 0RF acetaminophen 500 mg capsule 1,000 mg PO Q8HR PRN (Reason: pain) Qty: 30 0RF Problem List Clinical Impression: Threatened Patient/Caregiver Discharge Instructions Discharge Activity: resume usual activities Education Materials: ED Possible Miscarriage ... Print Language: Citizen Of [place] Stand Alone Forms: Martha Award Info., Patient Portal Info Letter
--- NOTE | 2025-01-24 18:02 | EDNOTE_ITS ---
Emergency Room Addendum Addendum Narrative: 1800: Care assumed from Dr. Palma the previous shift emergency physician. Past medical, surgical, social and family history reviewed. Vitals and home medications reviewed. Results and treatment plan discussed. I will assume the care of the patient at this time and will follow the patient, pending ultrasound. Please refer to the emergency department record for history and examination from initial visit. RADIOLOGY RESULTS: [facility] Report Signed Patient: ROSE CHAHAL Record#: [id number] Birthdate: 1995 Age/Sex: 29 / F Location: [facility] Attending Dr: Ordering Physician: Elena Lepe NP Date of Service: 01/24/25 Procedure(s): US OB <= 14 weeks fetus Accession Number(s): [id number] cc: Rui Lamb MD; Fatemeh Rogel MD; Elena Lepe NP~ Examination: Complete OB ultrasound, less than 14 weeks, transabdominal Date and time of exam: January 24, 2025, 1644 hours INDICATIONS: Pelvic cramping beginning 2 days ago Technique: Obstetrical ultrasound images less than 14 weeks performed via transabdominal imaging Findings: Uterus 8.0 cm intrauterine gestational sac 0.8 cm corresponds to 5 weeks 4 days gestational age, no pole, no cardiac activity Right ovary 2.8 cm arterial flow Left ovary 2.9 cm arterial flow IMPRESSION: Empty intrauterine gestational sac corresponding to 5 weeks 4 days gestational age Recommend transvaginal pelvic sonography follow-up to confirm viability Dictated By: Rui Lamb MD Signed By: <Electronically signed by Rui Lamb MD in [place]> 01/24/25 [id number]
[2025-01-24 18:09] VITALS: BP 106/70; PULSE 68; RESP 16; TEMP 37; O2SAT 98
[2025-01-24 19:10] VITALS: BP 122/77; PULSE 54; RESP 18; O2SAT 100
== END 2025-01-24 19:43 | disposition home or self-care (01) ==
LOC: SERX 17:59
PROVIDERS: Nurse Practitioner Family; Emergency Provider Emergency Medicine; PCP Internal Medicine
DX: O20.0 Threatened abortion (principal); Z3A.01 Less than 8 weeks gestation of pregnancy
CPT/HCPCS: 36415; 76801; 80053; 81001; 84702; 85025; 99283

== ENCOUNTER 2025-02-02 01:42 | Emergency (ER) | payer MEDICAID, SELFPAY ==
[2025-02-02 01:43] VITALS: BMI 39.1
[2025-02-02 01:55] VITALS: BP 138/82; PULSE 70; RESP 18; TEMP 36.6; O2SAT 99
--- NOTE | 2025-02-02 02:10 | XR_ITS ---
Examination: Complete OB ultrasound, less than 14 weeks, transabdominal Date and time of exam: February 02, 2025, 0232 hours INDICATIONS: Constipation abdominal pain 6 days. Technique: Obstetrical ultrasound images less than 14 weeks performed via transabdominal imaging Findings: A normal shaped single intrauterine gestation is present in the uterus. CRL 0.8 cm corresponds to 6 weeks 6 days gestational age Cardiac motion 133 bpm Ovaries obscured by bowel gas Ultrasonographic survey of visible and placental structures unremarkable. Amniotic fluid volume appears appropriate for this estimated gestational age. Impression: Viable intrauterine gestation 6 weeks 6 days.
--- NOTE | 2025-02-02 02:10 | PD.EDRME ---
Rapid Medical Screening Exam RME Arrival date/time: 02/02/25 01:42 This is a case of 29-year-old female with history of abdominal blockage and gastric sleeve came in in the emergency room due to generalized abdominal pain nausea vomiting with no BM for 1 week patient is 7 weeks 5 para 2 Chief Complaint: Abdominal Pain Time Seen by Provider: 02/02/25 01:43 Vital signs: Vital Signs Temperature 97.9 F 02/02/25 01:55 Pulse Rate 70 02/02/25 01:55 Respiratory Rate 18 02/02/25 01:55 Blood Pressure 138/82 H 02/02/25 01:55 Pulse Oximetry (%) 99 02/02/25 01:55 Oxygen Delivery Method Room Air 02/02/25 01:55 Exam: Gravid uterus normal active bowel sounds no guarding no rebound no rigidity mild tenderness periumbilical area Clinical Impression: Abdominal pain in
[2025-02-02 02:41] LABS: Basophils # (Auto) 0.0 Thou/mm3 (0.0-0.2); Basophils % (Auto) 0 % (0-2.5); Eosinophils # (Auto) 0.1 Thou/mm3 (0.0-0.5); Eosinophils % (Auto) 2 % (0-10); Hematocrit 34.6 % (36.0-46.0); Hemoglobin 11.0 g/dL (12.0-16.0); Immature Granulocytes Auto 0.01 Thou/mm3 (0.00-0.00); Lymphocytes # (Auto) 2.3 Thou/mm3 (1.0-4.8); Lymphocytes % (Auto) 43 % (10-50); Mean Corpuscular HGB Conc 31.8 g/dl (31.0-37.0); Mean Corpuscular Hemoglobin 27.1 pg (25.0-35.0); Mean Corpuscular Volume 85 fL (80-100); Monocytes # (Auto) 0.4 Thou/mm3 (0.0-0.8); Monocytes % (Auto) 7 % (0-12); Neutrophils # (Auto) 2.5 Thou/mm3 (1.8-7.7); Neutrophils % (Auto) 47 % (37-80); Nucleated Red Blood Cell # 0.00 Thou/mm3 (0.00-0.00); Nucleated Red Blood Cell % 0 /100 WBC (0); Platelet Count 209 Thou/mm3 (140-440); RDW Standard Deviation 45.0 fL (36.4-46.3); Red Blood Count 4.06 Miln/mm3 (4.00-5.20); White Blood Count 5.3 Thou/mm3 (3.6-11.0)
[2025-02-02 03:08] LABS: Alanine Aminotransferase 24 U/L (10-49); Albumin, Serum 3.8 gm/dL (3.5-5.0); Albumin/Globulin Ratio 1.3 (1.2-2.2); Alkaline Phosphatase 55 U/L (46-116); Anion Gap 9 (7-16); Aspartate Amino Transferase 47 U/L (0-34); BUN/Creatinine Ratio 22 Ratio (12-20); Bilirubin,Total 0.9 mg/dL (0.3-1.2); Blood Urea Nitrogen 13 mg/dL (9-23); Calcium 8.8 mg/dL (8.3-10.6); Calcium (Corrected) 9.0 mg/dL (8.5-10.1); Carbon Dioxide 26.9 mMol/L (20.0-31.0); Chloride 106 mMol/L (98-107); Creatinine (Component) 0.6 mg/dL (0.6-1.3); Estimated Creatinine Clearance 178.2 mL/min (>60); Globulin 3.0 gm/dL (2.3-3.5); Glucose 97 mg/dL (74-106); Osmolality,Calculated 283 (275-295); Potassium 3.6 mMol/L (3.4-5.1); Sodium 142 mMol/L (136-145); Total Protein 6.8 gm/dL (5.7-8.2); eGFR > 60 See Note
--- NOTE | 2025-02-02 04:49 | XR_ITS ---
EXAMINATION: PA chest single view TECHNIQUE: Upright PA chest single view Date and time: February 02, 2025, 0450 hours, comparison October 25, 2024 INDICATIONS: Generalized abdominal pain nausea vomiting no bowel movement 1 week, patient is 7 weeks FINDINGS: Normal heart size Lungs are clear. Intact osseous structures. IMPRESSION: No active disease
--- NOTE | 2025-02-02 06:43 | PD.EDABDPN ---
ED Abdominal Pain RME/HPI General Chief Complaint: Abdominal Pain Stated complaint: LWO ABD PAIN 7 WKS PREG Time seen by provider: 02/02/25 01:43 Arrival date/time: 02/02/25 01:42 RME / HPI RME / HPI narrative: 02/02/25 01:42 This is a case of 29-year-old female with history of abdominal blockage and gastric sleeve came in in the emergency room due to generalized abdominal pain nausea vomiting with no BM for 1 week patient is 7 weeks 5 para 2 Patient has been here approximately 5 hours prior to my evaluation. Patient is 29 years old and approximately 7 weeks . She has been complaining of upper abdominal pain with decreased bowel movements for the last 1 week. She does have a history of gastric sleeve placement and has had intestinal obstruction in the past. She is here for evaluation. She denies dysuria or hematuria. Exam: Gravid uterus normal active bowel sounds no guarding no rebound no rigidity mild tenderness periumbilical area Impression: Abdominal pain in Related Data Previous Rx's ?Medication ?Instructions ?Recorded ondansetron 4 mg disintegrating 4 mg PO Q8H PRN nausea and 10/03/24 tablet vomiting #14 tabs albuterol sulfate 90 mcg/actuation 2 puff inhalation Q6H PRN 10/25/24 aerosol inhaler (Ventolin HFA) shortness of breath or wheezing #8.5 grams amoxicillin 875 mg-potassium 1 tab PO BID #20 tabs 10/25/24 clavulanate 125 mg tablet lidocaine HCl 2 % mucosal solution 10 ml PO Q4HR PRN sore throat #100 10/25/24 (Lidocaine Viscous) mL promethazine-DM 6.25 mg-15 mg/5 mL 5 ml PO Q6H PRN cough #118 mL 10/25/24 oral syrup acetaminophen 500 mg capsule 1,000 mg (2 x 500 mg) PO Q8HR PRN 01/16/25 pain #30 caps metoclopramide HCl 10 mg tablet 10 mg PO Q6H PRN nausea and 02/02/25 (Reglan) vomiting #20 tabs Allergies Allergy/AdvReac Type Severity Reaction Status Date / Time No Known Allergies Allergy Verified 02/02/25 01:46 ED Exam Narrative Physical exam: Generally patient is sleeping easily arousable in no obvious distress, heart regular rate and rhythm, lungs clear to auscultation equal bilaterally, abdomen soft bowel sounds present nondistended mild upper abdominal tenderness without rebound. Skin is warm pale and dry. [place] Coma Scale is 15 for neurologic exam. Course Quality Measures none Orders Category Date Time Status US OB <= 14 weeks fetus Stat Exams 02/02/25 02:10 Taken XR chest 1V portable Stat Exams 02/02/25 04:49 Taken ABO/RH Type Stat Lab 02/02/25 02:18 Completed Beta HCG,Quantitative Stat Lab 02/02/25 02:18 Completed CBC Stat Lab 02/02/25 02:18 Completed CMP [Comprehensive Metabolic Panel] Stat Lab 02/02/25 02:18 Completed Urinalysis Stat Lab 02/02/25 02:10 Ordered Vital Signs Vital signs: Vital Signs Temperature 97.9 F 02/02/25 01:55 Pulse Rate 70 02/02/25 01:55 Respiratory Rate 18 02/02/25 01:55 Blood Pressure 138/82 H 02/02/25 01:55 Pulse Oximetry (%) 99 02/02/25 01:55 Oxygen Delivery Method Room Air 02/02/25 01:55 Abdominal Pain MDM MDM Narrative MDM Narrative:: Patient was not able to give a urine sample. She has no urinary symptomatology. A chest x-ray showed no free air under the diaphragm with clear lungs and normal cardiac silhouette. ultrasound showed a 6-week and 6-day fetus that is intrauterine with a heart rate of 133. On physical exam the patient is not obstructed. She is to keep well-hydrated. Reglan as prescribed for nausea. Return if condition worsens. Patient data External records reviewed:: Other (specify) Clinical information provided by:: none Social determinants that could affect healthcare access:: none Patient has the following chronic illnesses:: None How is presenting disease/condition affected by chronic disease/condition?: no chronic disease Evaluation data The following diagnostics were reviewed and interpreted by me:: other (specify) Lab and/or radiology exams considered but not ordered:: None Interpretation Summary: None Medications / Prescriptions Medications or Prescriptions considered but not ordered:: None Medication administrations:: None Consultations Consultation(s) initiated? (list below): No Diagnosis Differential diagnosis abdominal pain: abdominal pain, constipation, gastroenteritis and small bowel obstruction Most likely diagnosis given after review of the tests above:: None Admission Indicated Admission indicated?: not indicated Admission Request Was there a request for admission?: No Disposition Plan Disposition Plan: Discharge Discharge Attestation Discharge Attestation: The patient and all family members were given an opportunity to ask questions and understood the discharge instructions. Discharge instructions specifically effects, indications for sooner follow up or return to the emergency department, and the expected course of current diagnosis. Patient condition: Stable Discharge Plan Plan Patient Disposition: HOME (Self Care) Prescriptions/Referrals Prescriptions/Med Rec: New metoclopramide HCl [Reglan] 10 mg tablet 10 mg PO Q6H PRN (Reason: nausea and vomiting) Qty: 20 0RF No Action ondansetron 4 mg tablet,disintegrating 4 mg PO Q8H PRN (Reason: nausea and vomiting) Qty: 14 0RF amoxicillin-pot clavulanate 875-125 mg tablet 1 tab PO BID Qty: 20 0RF albuterol sulfate [Ventolin HFA] 90 mcg/actuation HFA aerosol inhaler 2 puff inhalation Q6H PRN (Reason: shortness of breath or wheezing) Qty: 8.5 0RF promethazine-DM 6.25-15 mg/5 mL syrup 5 ml PO Q6H PRN (Reason: cough) Qty: 118 0RF lidocaine HCl [Lidocaine Viscous] 2 % solution 10 ml PO Q4HR PRN (Reason: sore throat) Qty: 100 0RF acetaminophen 500 mg capsule 1,000 mg PO Q8HR PRN (Reason: pain) Qty: 30 0RF Referrals: Fatemeh Rogel MD [Primary Care Provider] - In 1 week Problem List Clinical Impression: Abdominal pain, , Constipation Patient/Caregiver Discharge Instructions Education Materials: Abdominal Pain, ED Constipation (Adult) Additional Instructions: Reglan as prescribed for nausea. Keep well-hydrated. Return if condition worsens. Print Language: [place] Stand Alone Forms: Martha Award Info., Patient Portal Info Letter
== END 2025-02-02 07:12 | disposition home or self-care (01) ==
PROVIDERS: Nurse Practitioner Family; Emergency Provider Emergency Medicine; PCP Internal Medicine
DX: O99.611 Diseases of the digestive system complicating pregnancy, first trimester (principal); K59.00 Constipation, unspecified; O26.891 Other specified pregnancy related conditions, first trimester; R10.84 Generalized abdominal pain; R11.2 Nausea with vomiting, unspecified; Z3A.01 Less than 8 weeks gestation of pregnancy
CPT/HCPCS: 36415; 71045; 76801; 80053; 81001; 84702; 85025; 86900; 86901; 99283